=== PATIENT | male | born 1985 | race Caucasian/White ===

== ENCOUNTER 2018-12-20 19:49 | Emergency (ER) | payer MEDICAID ==
[~2018-12-20] VITALS: Ht 172.7 cm; Wt 84.8 kg
[2018-12-20 19:49] VITALS: BP 125/71
== END 2018-12-20 20:48 | disposition home or self-care (01) ==
LOC: ER 19:57
DX: H60.92 Unspecified otitis externa, left ear (principal); H61.23 Impacted cerumen, bilateral

== ENCOUNTER 2019-05-17 22:44 | Emergency (ER) | payer MEDICAID, OTHER ==
[~2019-05-17] VITALS: Ht 182.9 cm; Wt 89.8 kg
--- NOTE | 2019-05-17 23:05 | NUR ---
BACK PAIN OR INJURY STATES THAT HE FELL TWO DAYS AGO AND NOW THE PAIN IS RADIATING TO BOTH LEGS. PT ALERT AND ORIENTED AND IN NAD
[2019-05-17] MEDS ORDERED: LIDOCAINE 5% (PATCH) 1 EA PATCH TP STA (23:06)
[2019-05-17] MEDS ORDERED: KETOROLAC TROMETHAMINE INJ 30 MG/ML VIAL ONE (23:15)
[2019-05-17] MEDS ORDERED: KETOROLAC TROMETHAMINE INJ 60 MG/2 ML VIAL IM ONE (23:30)
--- NOTE | 2019-05-17 23:30 | NUR ---
Received lidoderm 5% from [address] [id number].
[2019-05-17] MEDS ORDERED: LIDOCAINE 5% (PATCH) 1 EA PATCH TP ONE (23:35)
--- NOTE | 2019-05-18 01:15 | NUR ---
CALLED JUAN TO HAVE IMAGE READ.
[2019-05-18 01:43] VITALS: BP 128/77
== END 2019-05-18 01:46 | disposition home or self-care (01) ==
LOC: ER 22:50
DX: M54.5 Low back pain (principal); F17.200 Nicotine dependence, unspecified, uncomplicated; W18.39XA Other fall on same level, initial encounter; Y93.89 Activity, other specified; Y92.89 Other specified places as the place of occurrence of the external cause; Y99.8 Other external cause status
CPT/HCPCS: 72110; 96372; 99283; J1885

== ENCOUNTER 2019-12-27 02:39 | Emergency (ER) | payer MEDICAID ==
[~2019-12-27] VITALS: Ht 180.3 cm; Wt 90.7 kg
[2019-12-27 02:50] VITALS: BP 142/85
--- NOTE | 2019-12-27 02:54 | NUR ---
PT CAME TO THE ED C/O PRESSURE-LIKE MIDSTERNAL CHEST PAIN RADIAITNG TO BACK X 2 WEEKS. +DIAPHORESIS + SOB. PT WAS WATCHING WHEN CHEST PAIN HAPPENED 30 MINS AGO. PT AAOX4, VSS, RR EVEN AND UNLABORED ON RA W NAD NOTED. PT CONNECTED TO THE MONITOR AND POX
--- NOTE | 2019-12-27 02:56 | NUR ---
DR PRICE AT BEDSIDE
--- NOTE | 2019-12-27 02:56 | NUR ---
EKG AT BEDSIDE
--- NOTE | 2019-12-27 03:08 | NUR ---
Patient discharged to home in stable condition. Written and verbal after care instructions given. Patient verbalizes understanding of instruction.ambulatory with a steady gait
== END 2019-12-27 03:08 | disposition home or self-care (01) ==
LOC: ER 02:41
DX: F41.9 Anxiety disorder, unspecified (principal); R07.89 Other chest pain; R00.2 Palpitations

== ENCOUNTER 2020-01-27 12:56 | Emergency (ER) | payer MEDICAID ==
[~2020-01-27] VITALS: Ht 185.4 cm; Wt 99.8 kg
--- NOTE | 2020-01-27 13:10 | NUR ---
SEEN AND EXAMINED BY .
[2020-01-27] MEDS ORDERED: LORAZEPAM 0.5 MG TABLET ONE (13:18)
[2020-01-27] MEDS ORDERED: CARBAMAZEPINE 200 MG TABLET ONE (13:18)
[2020-01-27] MEDS ORDERED: CARBAMAZEPINE 200 MG TABLET PO ONE (13:30)
[2020-01-27] MEDS ORDERED: LORAZEPAM 1 MG TABLET PO ONE (13:30)
--- NOTE | 2020-01-27 14:12 | NUR ---
Patient discharged to home in stable condition. Written and verbal after care instructions given. Patient verbalizes understanding of instruction.
== END 2020-01-27 14:13 | disposition home or self-care (01) ==
LOC: ER 12:59
DX: G40.909 Epilepsy, unspecified, not intractable, without status epilepticus (principal); F17.200 Nicotine dependence, unspecified, uncomplicated

== ENCOUNTER 2021-11-01 20:50 | Emergency (ER) | payer MEDICAID ==
[~2021-11-01] VITALS: Ht 182.9 cm; Wt 94.3 kg
--- NOTE | 2021-11-01 21:38 | NUR ---
BIBS FOR C/O L FACIAL PAIN AND L POSTERIOR EAR INJURY S/P HIT BY A WOOD LOG WHILE CLEANING THE BACKYARD. TDAP NOT UPDATED. PATIENT ALERT AND ORIENTED X3. AMBULATORY WITH NON LABORED BREATHING
[2021-11-01] MEDS ORDERED: TDAP [DIPH/PERTUSSIS/TET] 0.5 ML VIAL IM ONE ×2 (22:00→22:08)
--- NOTE | 2021-11-01 22:34 | NUR ---
EMT @ BEDSIDE CLEANING EAR WOUND
[2021-11-01 22:58] VITALS: BP 132/88
--- NOTE | 2021-11-01 22:58 | NUR ---
Patient discharged to home in stable condition. Written and verbal after care instructions given. Patient verbalizes understanding of instruction.
== END 2021-11-01 22:59 | disposition home or self-care (01) ==
LOC: ER 20:53
DX: S00.412A Abrasion of left ear, initial encounter (principal); F17.200 Nicotine dependence, unspecified, uncomplicated; X83.8XXA Intentional self-harm by other specified means, initial encounter; Y93.89 Activity, other specified; Y92.89 Other specified places as the place of occurrence of the external cause; Y99.8 Other external cause status
CPT/HCPCS: 70450-TC; 70486-TC; 90715

== ENCOUNTER 2022-07-22 17:37 | Emergency (ER) | payer MEDICAID ==
[~2022-07-22] VITALS: Ht 180.3 cm; Wt 93.4 kg
--- NOTE | 2022-07-22 17:58 | NUR ---
DR TIDWELL AT BEDSIDE FOR EVAL
[2022-07-22] MEDS ORDERED: LIDOCAINE 0.5% HCL 50 ML VIAL ONE (18:04)
[2022-07-22 18:05] VITALS: BP 111/85
[2022-07-22] MEDS ORDERED: IBUP-1953 PO (18:06)
[2022-07-22] MEDS ORDERED: LIDOCAINE 2%-EPI 1:100,000 30 ML VIAL ONE (18:07)
[2022-07-22] MEDS ORDERED: IBUPROFEN 400 MG TABLET ONE (18:27)
[2022-07-22] MEDS ORDERED: LIDOCAINE 1%-EPI 1:100,000 50 ML VIAL IJ ONE (18:30)
[2022-07-22] MEDS ORDERED: IBUPROFEN 400 MG TABLET PO ONE (18:30)
--- NOTE | 2022-07-22 18:31 | NUR ---
Patient discharged to home in stable condition. Written and verbal after care instructions given. Patient verbalizes understanding of instruction.
== END 2022-07-22 18:32 | disposition home or self-care (01) ==
LOC: ER 17:42
DX: L02.31 Cutaneous abscess of buttock (principal); Z79.1 Long term (current) use of non-steroidal anti-inflammatories (NSAID)
CPT/HCPCS: 10060; 99282; J3490 ×2

== ENCOUNTER 2022-09-17 23:50 | Emergency (ER) | payer MEDICAID ==
[~2022-09-17] VITALS: Ht 182.9 cm; Wt 94.3 kg
[~2022-09-17 23:50] MED LIST: IBUP-1953 PO
[2022-09-18 01:10] VITALS: BP 138/71
[2022-09-18] MEDS ORDERED: CLIN300C12 PO ×2 (01:45→01:46)
[2022-09-18] MEDS ORDERED: KETOROLAC TROMETHAMINE INJ 30 MG/ML VIAL ONE (01:50)
[2022-09-18] MEDS ORDERED: CLINDAMYCIN HCL 150 MG CAPSULE ONE (01:50)
[2022-09-18] MEDS ORDERED: CLINDAMYCIN HCL 150 MG CAPSULE PO ONE (02:00)
[2022-09-18] MEDS ORDERED: KETOROLAC TROMETHAMINE INJ 60 MG/2 ML VIAL IM ONE (02:00)
== END 2022-09-18 02:03 | disposition home or self-care (01) ==
LOC: ER 23:52
DX: L03.112 Cellulitis of left axilla (principal); Z79.899 Other long term (current) drug therapy
CPT/HCPCS: 99283; 96372; J1885

== ENCOUNTER 2022-12-16 19:45 | Emergency (ER) | payer MEDICAID ==
[~2022-12-16] VITALS: Ht 182.9 cm; Wt 95.3 kg
[~2022-12-16 19:45] MED LIST changes: +CLIN300C12 PO
[2022-12-16 22:35] VITALS: BP 134/80
[2022-12-16] MEDS ORDERED: ACETAMINOPHEN 325 MG TABLET ONE (22:41)
[2022-12-16] MEDS ORDERED: KETOROLAC TROMETHAMINE INJ 30 MG/ML VIAL ONE (22:41)
[2022-12-16] MEDS ORDERED: CYCLOBENZAPRINE 10 MG TABLET ONE (22:42)
--- NOTE | 2022-12-16 22:48 | NUR ---
BIBS TO ER BED 12. AAOX4. NOT IN RESP DISTRESS, BREATHING EVEN AND UNLABORED. AMBULATORY ON STEADY GAIT. CAME IN FOR NECK PAIN S/P FELL OF A LADDER WHILE CLEANING THE RAIN GUTTER. PT STATES THAT HE FELL ABOUT 10FT AND LANDED ON HIS L UPPER ARM. DENIES HITTING HIS HEAD. PT IS NOTED WITH A NECK LEAN ON HIS LEFT. MD WAS CALLED TO BEDSIDE FOR EVAL. ORDERS RECEIVED. CERVICAL COLLAR PLACED.
[2022-12-16] MEDS ORDERED: KETOROLAC TROMETHAMINE INJ 60 MG/2 ML VIAL IM ONE (23:00)
[2022-12-16] MEDS ORDERED: CYCLOBENZAPRINE 10 MG TABLET PO ONE (23:00)
[2022-12-16] MEDS ORDERED: ACETAMINOPHEN 325 MG TABLET PO ONE (23:00)
--- NOTE | 2022-12-16 23:52 | NUR ---
Patient does not wish to proceed with medical care recommended by Jb Lamb. Patient given information related to possible complications, up to and including , which could occur as a result of leaving the hospital at this time. Patient verbalizes understanding of risks involved due to leaving against medical advice. Patient has signed AMA form.
== END 2022-12-16 23:52 | disposition left against medical advice (07) ==
LOC: ER 19:48
DX: M54.2 Cervicalgia (principal); F17.200 Nicotine dependence, unspecified, uncomplicated; Z79.899 Other long term (current) drug therapy; W11.XXXA Fall on and from ladder, initial encounter; Y93.89 Activity, other specified; Y92.89 Other specified places as the place of occurrence of the external cause; Y99.8 Other external cause status
CPT/HCPCS: 99283; 96372; J1885

== ENCOUNTER 2024-02-25 23:10 | Emergency (ER) | payer MEDICAID ==
[~2024-02-25] VITALS: Ht 182.9 cm; Wt 90.7 kg
[2024-02-26] MEDS ORDERED: KETOROLAC TROMETHAMINE INJ 30 MG/ML VIAL ONE (00:29)
[2024-02-26] MEDS: KETOROLAC TROMETHAMINE 15 MG/ML VIAL IV ONE (00:34)
[2024-02-26 00:36] LABS: BASOPHILS % (AUTO) 0.4 % (0.0-2.0); EOSINOPHILS # (AUTO) 0.2 K/uL (0.0-0.7); HEMATOCRIT 43 % (39-51); HEMOGLOBIN 15.3 g/dL (13.5-17.5); LYMPHOCYTES # (AUTO) 2.1 K/uL (0.8-4.8); LYMPHOCYTES % (AUTO) 22.1 % (20.0-44.0); MEAN CORPUSCULAR HEMOGLOBIN 32 PG (26.0-33.0); MEAN CORPUSCULAR HGB CONC 36 g/dl (31.0-36.0); MEAN CORPUSCULAR VOLUME 90 fL (80-96); MONOCYTES # (AUTO) 0.6 K/uL (0.1-1.30); MONOCYTES % (AUTO) 6.7 % (2.0-12.0); NEUTROPHILS # (AUTO) 6.6 K/uL (1.8-8.9); NEUTROPHILS % (AUTO) 68.8 % (43.0-81.0); PLATELET COUNT (AUTO) 237 K/uL (150-450); RED BLOOD CELL COUNT(AUTO) 4.79 MIL/uL (4.5-6.0); RED CELL DISTRIBUTION WIDTH 12.7 % (11.5-15.0); WHITE BLOOD COUNT (AUTO) 9.6 K/uL (4.3-11.0)
[2024-02-26 00:38] LABS: APPEARANCE,URINE Clear (CLEAR); BILIRUBIN,URINE Negative (NEGATIVE); BLOOD, URINE Negative Ery/uL (NEGATIVE); COLOR,URINE YELLOW (YELLOW); KETONES,URINE Negative (NEGATIVE); LEUKOCYTE ESTERASE ,URINE Negative (NEGATIVE); NITRITE, URINE Negative (NEGATIVE); PH,URINE 5.5 (5.0-8.0); PROTEIN,URINE Negative (NEGATIVE); UGLUCOSE Negative (NEGATIVE); UROBILINOGEN,URINE 0.2 EU/dL (0.2)
[2024-02-26 00:52] LABS: ALANINE AMINOTRANSFERASE 94 U/L (12-78); ALKALINE PHOSPHATASE 76 U/L (46-116); ASPARTATE AMINOTRANSFERASE 31 U/L (15-37); BILIRUBIN,DIRECT 0.1 mg/dL (0.0-0.2); BILIRUBIN,TOTAL 0.2 mg/dL (0.2-1.0); CARBON DIOXIDE 27 mmol/L (21-32); CHLORIDE 106 mmol/L (98-107); CREATININE 0.8 mg/dL (0.6-1.3); GLUCOSE 98 mg/dL (74-106); LIPASE 67 U/L (16-77); POTASSIUM 3.9 mmol/L (3.5-5.1); SODIUM SERUM 142 mmol/L (136-145); TOTAL PROTEIN, SERUM 7.7 g/dL (6.4-8.2); UREA NITROGEN, BLOOD 13 mg/dL (7-18)
[2024-02-26 00:59] LABS: INR 1.01 (0.91-1.10); PARTIAL THROMBOPLASTIN TIME 27.4 SEC (24.3-34.3); PROTHROMBIN TIME 10.4 SECS (9.2-11.1)
[2024-02-26] MEDS ORDERED: DOCU-141 PO (01:38)
[2024-02-26] MEDS ORDERED: POLY17PO4 PO (01:38)
[2024-02-26 02:10] VITALS: BP 126/82; TEMP 98.5; O2SAT 97
== END 2024-02-26 02:11 | disposition home or self-care (01) ==
LOC: ER 23:13
DX: K59.00 Constipation, unspecified (principal); R10.33 Periumbilical pain; F17.200 Nicotine dependence, unspecified, uncomplicated; Z79.899 Other long term (current) drug therapy
CPT/HCPCS: 99285; 74176; 96374; 71045; 93005; 85025; 80048; 83690; 80076; 81003; 36415; 84484; 85730; J1885